=== PATIENT | female | born 1930 | race Caucasian/White ===

== ENCOUNTER 2017-05-05 09:05 | Day surgery (SDC) | payer MEDICARE ==
[~2017-05-05] VITALS: Ht 152.4 cm; Wt 55.0 kg
[2017-05-05] MEDS ORDERED: ACTO15TA11 PO (09:29)
[2017-05-05] MEDS ORDERED: SIMV20TA PO (09:29)
[2017-05-05] MEDS ORDERED: BENA10TA PO (09:29)
[2017-05-05] MEDS ORDERED: BENA5TAB PO (09:29)
[2017-05-05] MEDS ORDERED: LEVO50TA4 PO (09:30)
[2017-05-05 09:33] VITALS: BP 195/88; PULSE 78; RESP 18; TEMP 98.8; O2SAT 97
[2017-05-05] MEDS ORDERED: SODIUM CHLOR 0.9% 1000 ML IV SCH (10:00)
[2017-05-05 10:10] LABS: AUTOMATED NEUTROPHIL # 4.9 TH/MM3 (1.8-7.7); BASOPHIL % 0.5 % (0.0-2.0); EOSINOPHIL # 0.1 TH/MM3 (0-0.4); HEMATOCRIT 38.4 % (35.0-46.0); HEMO FLAGS DIFF FINAL; LYMPHOCYTE # 1.5 TH/MM3 (1.0-4.8); MEAN CELL VOLUME 90.6 FL (80.0-100.0); MEAN CORPUSCULAR HEMOGLOBIN 30.9 PG (27.0-34.0); MEAN CORPUSCULAR HGB CONC 34.1 % (32.0-36.0); NEUT % 68.5 % (16.0-70.0); PLATELET COUNT 271 TH/MM3 (150-450); RED BLOOD COUNT 4.23 MIL/MM3 (4.00-5.30); RED CELL DISTRIBUTION WIDTH 13.6 % (11.6-17.2); WHITE BLOOD COUNT 7.1 TH/MM3 (4.0-11.0)
[2017-05-05 10:12] LABS: APTT (PATIENT) 25.9 SEC (24.3-30.1); PROTHROMBIN TIME - PATIENT 10.5 SEC (9.8-11.6)
[2017-05-05] MEDS ORDERED: LIDOCAINE HCL 1% 20 ML VIAL ONE (10:13)
[2017-05-05] MEDS ORDERED: MIDAZOLAM HCL 2 MG/2 ML VIAL ONE (10:50)
[2017-05-05 11:30] VITALS: BP 93/48; PULSE 52; RESP 18; TEMP 97.8; O2SAT 94
--- NOTE | 2017-05-05 11:35 | PD.RAD ---
Post CT Procedure Prog Note Pre Procedure Diagnosis: (1) Abdominal mass Post Procedure Diagnosis: (1) Abdominal mass Procedure Date: May 05, 2017 Supervising Radiologist: Johan Toure JR Anesthesia: Conscious Sedation Plan of Activity Patient to Unit: [facility] Patient Condition: Good See PACS Report for procedural detail/treatment Biopsy Imaging Guidance: CT Biopsy Procedure: Abdominal Mass Specimen: Core Biopsy Findings: Core samples of intraperitoneal mass obtained. Placed in formalin and RPMI fluid. No significant bleeding on post CT images. Jr. Mesfin,Johan Melendez MD May 05, 2017 11:35
[2017-05-05 11:45] VITALS: BP 106/65; PULSE 55; RESP 18; O2SAT 95
--- NOTE | 2017-05-05 12:10 | RADRPT ---
EXAM DATE/TIME: 05/05/2017 10:53 [place] COMPARISON: No previous studies available for comparison. INDICATIONS : Abdominal mass. SEDATION TIME: 15 minutes BIOPSY SITE: Left abdomen. MEDICATION(S): 1.) 1.5 mg midazolam (Versed) IV 2.) 75 mcg fentanyl (Sublimaze) IV DEVICE(S): 1.) 17 gauge micropuncture introducer 2.) 18 gauge Temno core biopsy needle MEDICAL HISTORY : Hypothyroidism. Hypertension. Diabetes mellitus type 2. Proplapsed bladder and uterus. SURGICAL HISTORY : Appendectomy. Uterine suspension surgery. ENCOUNTER: Initial ACUITY: 1 day PAIN SCORE: 0/10 LOCATION: Left upper quadrant A total of three core specimen(s) were obtained and sent to the laboratory for pathologic evaluation. PROCEDURE: 1. CT guided abdomenal mass biopsy. 2. Conscious sedation with continuous EKG and oximetry monitoring. 3. EKG and oximetry remained stable throughout the procedure. Prior to the procedure informed consent was obtained. Any appropriate prior imaging studies were rev iewed. Using automated exposure control and adjustment of the mA and/or kV according to patient size, radiat ion dose was kept as low as reasonably achievable to obtain optimal diagnostic quality images. DICOM format image data is available electronically for review and comparison. The site was prepped in a sterile fashion. Full sterile technique was used, including cap, mask, natalie rile gloves and gown and a large sterile sheet. Hand hygiene and 2% chlorhexidine and/or betadine/al cohol prep was utilized per protocol for cutaneous antisepsis. The skin and subcutaneous tissues wer e infiltrated with local anesthetic solution. With CT guidance the large abdominal mass was localized. Biopsy was performed using the prescribed ne edle as above. Samples were placed in formalin and RPMI fluid. Adequate hemostasis was obtained with compression at the puncture site. Follow-up CT scan reveals no hemorrhage. The patient tolerated the procedure well and there were no complications. The patient was returned to the Radiology Outpatient Unit in stable condition. CONCLUSION: Uncomplicated CT guided biopsy of an intraperitoneal abdominal mass. Johan Toure Jr., MD on May 05, 2017 at 12:07 Board Certified Radiologist. This report was verified electronically.
== END 2017-05-05 11:30 | disposition home or self-care (01) ==
LOC: HRAD 09:05 → HRIP 09:12 → HRAD 11:30
PROVIDERS: ATTEND Internal Medicine Hematology & Oncology
DX: C83.33 Diffuse large B-cell lymphoma, intra-abdominal lymph nodes (principal); R19.00 Intra-abdominal and pelvic swelling, mass and lump, unspecified site; E03.9 Hypothyroidism, unspecified; I10 Essential (primary) hypertension; E11.9 Type 2 diabetes mellitus without complications; E78.00 Pure hypercholesterolemia, unspecified; Z79.84 Long term (current) use of oral hypoglycemic drugs; Z79.899 Other long term (current) drug therapy
CPT/HCPCS: 49180; 77012; 85025; 85610; 85730; 88307; 88341; 88342; 99152; J2250; J3010; 88305; 88377